=== PATIENT | male | born 1975 | race Caucasian/White ===

== ENCOUNTER 2023-06-30 06:45 | Inpatient (IN) | payer OTHER ==
[2023-06-30 07:13] LABS: #Monocytes 0.8 thou/uL (0.11-0.59); %Basophils 0.4 % (0.0-1.0); %Eosinophils 0.4 % (0.0-10.0); %Lymphocytes 13.2 % (21.0-51.0); %Monocytes 7.8 % (0.0-10.0); %Neutrophils 74.1 % (42.0-75.0); Hematocrit 20.7 % (42.0-52.0); Hemoglobin 6.7 g/dL (14.0-18.0); Mean Corpuscular HGB CONC 32.4 g/dL (32.0-36.0); Mean Corpuscular Hemoglobin 32.5 pg (27.0-31.0); Mean Corpuscular Volume 100.5 fl (78.0-98.0); Mean Platelet Volume 10.1 fL (7.4-10.4); Platelet Count 314 10x3/uL (130-400); RBC Distribution Width 14.9 % (11.5-14.5); Red Blood Cell (RBC) Count 2.06 mill/uL (4.70-6.10); White Blood Cell (WBC) Count 10.8 10x3/uL (4.8-10.8)
[2023-06-30 07:30] LABS: PTT 32.6 sec (22.9-36.1); Prothrombin Time 12.9 sec (12.0-14.7)
[2023-06-30 07:36] LABS: ALT (SGPT) 9 U/L (8-55); AST (SGOT) 13 U/L (5-34); Albumin 2.9 g/dL (3.5-5.0); Alkaline Phosphatase 74 U/L (40-110); Anion Gap 11 mmol/L (10-20); BUN (Urea Nitrogen) 20 mg/dL (8.9-20.6); Bilirubin, Total 0.3 mg/dL (0.2-1.2); Calc. Creatinine Clearance 0 mL/min (70-130); Calcium 8.5 mg/dL (7.8-10.44); Carbon Dioxide 27 mmol/L (22-29); Chloride 103 mmol/L (98-107); Estimated GFR 43; Globulin 2.4 g/dL (2.4-3.5); Glucose 150 mg/dL (70-105); Magnesium 1.6 mg/dL (1.6-2.6); Potassium 4.4 mmol/L (3.5-5.1); Protein, Total 5.3 g/dL (6.0-8.3); Sodium 137 mmol/L (136-145)
[2023-06-30] MEDS ORDERED: Pantoprazole 40 MG VIAL ONE (07:36)
[2023-06-30 08:33] LABS: Iron 27 ug/dL (65-175); Iron Binding Capacity, Total 235 mcg/dL (261-462)
[2023-06-30 10:56] VITALS: BMI 35.2
[2023-06-30] MEDS ORDERED: Acetaminophen 650 MG Suppository PR PRN (10:57)
[2023-06-30] MEDS ORDERED: Ondansetron ODT 4 MG TAB PO PRN (10:57)
[2023-06-30] MEDS ORDERED: Acetaminophen 325 MG TAB PO PRN (10:57)
[2023-06-30] MEDS ORDERED: Glucagon 1 MG/ML KIT IM PRN (11:01)
[2023-06-30] MEDS ORDERED: Dextrose 50% Abboject 50 ML SYRINGE SLOW IVP PRN (11:01)
[2023-06-30] MEDS ORDERED: Dextrose 5% in Water 1,000 ML IV PRN (11:01)
[2023-06-30 11:29] LABS: Hematocrit 27.2 % (42.0-52.0); Hemoglobin 8.7 g/dL (14.0-18.0)
[2023-06-30] MEDS: Sodium Chloride 0.9% 1,000 ML IV SCH (11:59)
[2023-06-30] MEDS ORDERED: GoLYTELY 4,000 ml Bottle PO SCH (15:00)
[2023-06-30] MEDS: cefTRIAXone\\ROCEPHIN 1 GM in Sodium Chloride 0.9% 100 ML IVPB SCH (16:01)
[2023-06-30] MEDS: Insulin Regular 300 UNITS/3 ML VIAL SC PRN (17:29)
[2023-06-30 18:02] LABS: Hematocrit 25.7 % (42.0-52.0); Hemoglobin 8.4 g/dL (14.0-18.0)
[2023-06-30] MEDS: Pantoprazole 40 MG VIAL IVP SCH (21:44)
[2023-06-30] MEDS: metroNIDAZOLE 500 MG in Premix 1 BAG IVPB SCH (21:44)
[2023-06-30 23:33] LABS: Hematocrit 24.9 % (42.0-52.0); Hemoglobin 8.2 g/dL (14.0-18.0)
[2023-07-01 03:53] LABS: #Basophils 0.1 thou/uL (0.0-0.2); #Monocytes 0.8 thou/uL (0.11-0.59); #Neutrophils 6.5 thou/uL (1.40-6.50); %Basophils 0.7 % (0.0-1.0); %Eosinophils 0.1 % (0.0-10.0); %Lymphocytes 18.4 % (21.0-51.0); %Neutrophils 69.1 % (42.0-75.0); Hematocrit 27.2 % (42.0-52.0); Hemoglobin 8.7 g/dL (14.0-18.0); Mean Corpuscular Hemoglobin 31.3 pg (27.0-31.0); Mean Corpuscular Volume 97.8 fl (78.0-98.0); Mean Platelet Volume 10.2 fL (7.4-10.4); Platelet Count 322 10x3/uL (130-400); RBC Distribution Width 15.1 % (11.5-14.5); Red Blood Cell (RBC) Count 2.78 mill/uL (4.70-6.10); White Blood Cell (WBC) Count 9.4 10x3/uL (4.8-10.8)
[2023-07-01 04:16] LABS: Anion Gap 13 mmol/L (10-20); BUN (Urea Nitrogen) 16 mg/dL (8.9-20.6); Calc. Creatinine Clearance 92 mL/min (70-130); Calcium 8.5 mg/dL (7.8-10.44); Carbon Dioxide 28 mmol/L (22-29); Chloride 101 mmol/L (98-107); Estimated GFR 46; Glucose 111 mg/dL (70-105); Potassium 4.5 mmol/L (3.5-5.1); Sodium 137 mmol/L (136-145)
[2023-07-01] MEDS: metroNIDAZOLE 500 MG in Premix 1 BAG IVPB SCH ×3 (05:19→21:01)
[2023-07-01] MEDS: Sodium Chloride 0.9% 1,000 ML IV SCH ×2 (05:19→14:39)
[2023-07-01] MEDS: Pantoprazole 40 MG VIAL IVP SCH ×2 (08:45→21:01)
[2023-07-01 10:21] LABS: Hematocrit 28.6 % (42.0-52.0)
[2023-07-01] MEDS: Insulin Regular 300 UNITS/3 ML VIAL SC PRN (11:42)
[2023-07-01] MEDS ORDERED: Amlodipine 10 MG TAB PO SCH (12:00)
[2023-07-01] MEDS: hydrALAZINE 25 MG TAB PO SCH ×2 (14:38→21:01)
[2023-07-01] MEDS: cefTRIAXone\\ROCEPHIN 1 GM in Sodium Chloride 0.9% 100 ML IVPB SCH (15:45)
[2023-07-01 17:14] LABS: Hematocrit 26.5 % (42.0-52.0); Hemoglobin 8.7 g/dL (14.0-18.0)
[2023-07-01] MEDS: Carvedilol 25 MG TAB PO SCH (21:01)
[2023-07-02 04:55] LABS: #Basophils 0.1 thou/uL (0.0-0.2); #Monocytes 0.6 thou/uL (0.11-0.59); #Neutrophils 5.5 thou/uL (1.40-6.50); %Basophils 0.9 % (0.0-1.0); %Lymphocytes 21.3 % (21.0-51.0); %Monocytes 7.4 % (0.0-10.0); %Neutrophils 67.8 % (42.0-75.0); Hematocrit 27.3 % (42.0-52.0); Hemoglobin 8.7 g/dL (14.0-18.0); Mean Corpuscular HGB CONC 31.9 g/dL (32.0-36.0); Mean Corpuscular Hemoglobin 31.3 pg (27.0-31.0); Mean Corpuscular Volume 98.2 fl (78.0-98.0); Mean Platelet Volume 9.9 fL (7.4-10.4); Platelet Count 349 10x3/uL (130-400); RBC Distribution Width 14.6 % (11.5-14.5); Red Blood Cell (RBC) Count 2.78 mill/uL (4.70-6.10); White Blood Cell (WBC) Count 8.2 10x3/uL (4.8-10.8)
[2023-07-02] MEDS: metroNIDAZOLE 500 MG in Premix 1 BAG IVPB SCH (05:17)
[2023-07-02] MEDS: Sodium Chloride 0.9% 1,000 ML IV SCH (05:18)
[2023-07-02 05:28] LABS: Anion Gap 12 mmol/L (10-20); BUN (Urea Nitrogen) 12 mg/dL (8.9-20.6); Calc. Creatinine Clearance 88 mL/min (70-130); Calcium 8.8 mg/dL (7.8-10.44); Carbon Dioxide 31 mmol/L (22-29); Chloride 101 mmol/L (98-107); Estimated GFR 44; Glucose 117 mg/dL (70-105); Potassium 4.3 mmol/L (3.5-5.1); Sodium 140 mmol/L (136-145)
[2023-07-02] MEDS ORDERED: Amlodipine 10 MG TAB PO SCH (09:00)
[2023-07-02] MEDS ORDERED: Furosemide 40 MG TAB PO SCH (09:00)
[2023-07-02] MEDS ORDERED: Gabapentin 300 MG CAP PO SCH (09:00)
[2023-07-02] MEDS ORDERED: Isosorbide Mononitrate 30 MG ER.TAB PO SCH (09:00)
[2023-07-02] MEDS: hydrALAZINE 25 MG TAB PO SCH (09:14)
[2023-07-02] MEDS: Carvedilol 25 MG TAB PO SCH (09:14)
[2023-07-02] MEDS: Pantoprazole 40 MG VIAL IVP SCH (09:15)
[2023-07-02 12:03] VITALS: BP 129/72; TEMP 99.4
== END 2023-07-02 14:02 | disposition home or self-care (01) | DRG 378 ==
LOC: ERS 06:45 → SURG A 09:27
PROVIDERS: ADMIT Internal Medicine; ATTEND Family Medicine
PROC: 30233N1 Transfusion of Nonautologous Red Blood Cells into Peripheral Vein, Percutaneous Approach (ICD-10-PCS; principal; 2023-06-30)
DX: K57.93 Diverticulitis of intestine, part unspecified, without perforation or abscess with bleeding (principal); D62 Acute posthemorrhagic anemia; N17.9 Acute kidney failure, unspecified; J44.9 Chronic obstructive pulmonary disease, unspecified; F17.210 Nicotine dependence, cigarettes, uncomplicated; E78.5 Hyperlipidemia, unspecified; Z98.890 Other specified postprocedural states; Z71.6 Tobacco abuse counseling; Z79.4 Long term (current) use of insulin; Z79.899 Other long term (current) drug therapy; I12.9 Hypertensive chronic kidney disease with stage 1 through stage 4 chronic kidney disease, or unspecified chronic kidney disease; N18.30 Chronic kidney disease, stage 3 unspecified; E11.22 Type 2 diabetes mellitus with diabetic chronic kidney disease
CPT/HCPCS: 36415; 36416; 36430; 74176; 80048; 80053; 82274; 82728; 83540; 83550; 83605; 83735; 85025; 85610; 85730; 86850; 86900; 86901; 96374; C9113; J0696; J1815; J3490; J7050; P9016